=== PATIENT | female | born 1995 | race Caucasian/White ===

== ENCOUNTER 2017-01-29 03:49 | Emergency (ER) | payer OTHER ==
[~2017-01-29] VITALS: Ht 167.6 cm; Wt 66.6 kg
[2017-01-29 03:59] VITALS: TEMP 36.9; Ht 167.6 cm; Wt 66.6 kg
--- NOTE | 2017-01-29 04:28 | EMERGENCY ROOM VISIT NOTE ---
History Report prepared by Mike: Jyoti Agudelo Under the Supervision of: Dr. Shelley Dumont D.O. First contact with patient: 04:09 Chief Complaint: HEADACHE Stated Complaint: HEADACHES History of Present Illness The patient is a 21 year old female who presents to the Emergency Room with complaints of intermittent headaches beginning 1 week ago. The patient states that she gets pinches in various places in her head 10 times a day. She reports that she woke up tonight from talking in her sleep and had a head pain so she decided to come in. She notes that she was seen at [facility] recently and was diagnosed with an ear infection but has not taken the antibiotics she was prescribed. The patient states that she was drinking during the day today. She denies any nausea, vomiting, changes in vision, confusion, memory problems, leg cramping or swelling, and health problems. The patient reports that her LNMP was 3 or 4 weeks ago and she denies any chance of . Source of History: patient Onset: 1 week ago Position: head Symptom Intensity: 10x a day Quality: other (pinches) Timing: intermittent Associated Symptoms: No nausea, No vomiting Note: She denies any changes in vision, confusion, memory problems, leg cramping or swelling, and health problems. Review of Systems See HPI for pertinent positives & negatives. A total of 10 systems reviewed and were otherwise negative. Past Medical & Surgical Medical Problems: (1) No Known Active Medical Problems Family History No pertinent family history stated. Social History Smoking Status: Never Smoker Smokeless Tobacco Use: No Alcohol Use: occasionally Occupation Status: student Current/Historical Medications Scheduled Control Pills ( Control Pills), 1 TAB PO DAILY Allergies Coded Allergies: No Known Allergies (Unverified , 01/29/17) Physical Exam Vital Signs Date Time Temp Pulse Resp B/P Pulse Ox O2 Delivery O2 Flow Rate FiO2 01/29/17 05:51 67 18 110/71 100 Room Air 01/29/17 05:15 70 18 123/83 100 Room Air 01/29/17 03:59 36.9 68 18 126/73 99 Room Air Physical Exam HEENT: Head - normocephalic and atraumatic. Pupils are equal, round, and reactive to light. Extraocular eye muscles are intact and sclera are anicteric. Ears - bilaterally patent canals with noninjected tympanic membranes and no evidence of hemotympanum. Right ear has cerumen. Left ear is normal. Nose - moist nasal mucosa without discharge. Mouth - moist buccal mucosa. Oropharynx is nonerythematous and there is no tonsillar exudate or edema noted. Neck: Supple; no JVD, nuchal rigidity, cervical lymphadenopathy. Heart: Regular rate and rhythm. There is a normal S1 and S2 with no murmurs, clicks, or gallops appreciated. Lungs: Clear to auscultation bilaterally with no wheezes, rales, or rhonchi. Abdomen: Soft, completely nontender, nondistended, with good bowel sounds. There are no palpable pulsatile masses or hepatosplenomegaly. There is no guarding, rigidity, or rebound noted. Extremities: No evidence of cyanosis, clubbing, or edema. There are easily palpable peripheral pulses. Neuro:The patient is awake and alert, oriented to day, time, and place. Muscle strength is 5/5 in all 4 extremities. The patient has equal clinical services specialist strength and equal pedal push and pull. There are no cerebellar signs. Medical Decision & Procedures ER Provider Diagnostic Interpretation: CT results as stated below per my review and radiologist interpretation: CT HEAD: No acute intracranial abnormality. Radiologist: Jong Lopez MD. ED Course 0418: Past medical records reviewed. The patient was evaluated in room B2. A complete history and physical exam was performed. The patient went to CT scan of the brain which was unremarkable. 0551: Upon reevaluation, the patient is doing well. I discussed findings and results with the patient. She verbalized agreement of the treatment plan. The patient was discharged home. Medical Decision The patient is a 21 year old female who presents to the ED with pinching headaches. Differential diagnosis includes migraine, tension headache, intracranial mass, cluster headache. The patient awoke from sleep this morning and was very concerned about these intermittent headaches. She went for CT scan of the brain which was unremarkable. Upon presentation to the ER, she did not actually have a headache but was just concerned about it. She was reassured by the fact that the CAT scan did not show any evidence of a mass or any other acute findings. I 've asked the patient to follow-up with her PCP if the symptoms persist. Impression Primary Impression: Headache Scribe Attestation The scribe's documentation has been prepared under my direction and personally reviewed by me in its entirety. I confirm that the note above accurately reflects all work, treatment, procedures, and medical decision making performed by me. Departure Information Dispostion Home / Self-Care Referrals No Doctor, Assigned (PCP) Forms HOME CARE DOCUMENTATION FORM, IMPORTANT VISIT INFORMATION Patient Instructions Headache Pain, My [facility] Additional Instructions Resturn to the ER if symptoms worsen
[2017-01-29] MEDS ORDERED: BCPILLS PO (04:44)
[2017-01-29 05:51] VITALS: BP 110/71; PULSE 67; O2SAT 100
--- NOTE | 2017-01-29 06:54 | DIAGNOSTIC IMAGING REPORT ---
HEAD CT NONCONTRAST CT DOSE: 537.48 mGy.cm HISTORY: continued headache TECHNIQUE: Multiaxial CT images of the head were performed without the use of intravenous contrast. Automated exposure control was utilized for this study. Comparison: None. Findings: The paranasal sinuses and mastoid air cells are clear. The calvarium and skull base are intact. The ventricles and sulci are within normal limits. There is no mass, hematoma, midline shift, or acute infarct. Impression: No acute intracranial abnormality. Electronically signed by: David French M.D. 01/29/2017 6:51 AM Dictated Date/Time: 01/29/2017 6:50 AM
== END 2017-01-29 05:52 | disposition home or self-care (01) ==
LOC: C.EDB 03:51
DX: R51 Headache (principal)